=== PATIENT | female | born 1995 | race Caucasian/White ===

== ENCOUNTER → 2021-12-20 | Outpatient (CLI) | payer OTHER ==
[2021-12-20 13:44] LABS: HEMATOCRIT 36.7 % (36.0-47.0); HEMOGLOBIN 12.4 g/dl (12.0-15.5); MEAN CORPUSCULAR HEMOGLOBIN 30.8 pg (27.0-33.0); MEAN CORPUSCULAR HGB CONC 33.8 g/dl (32.0-36.5); MEAN CORPUSCULAR VOLUME 91.1 fl (80.0-96.0); PLATELET COUNT, AUTOMATED 356 10^3/uL (150-450); RED BLOOD COUNT 4.03 10^6/uL (4.00-5.40); WHITE BLOOD COUNT 10.7 10^3/uL (4.0-10.0)
[2021-12-20 15:38] LABS: GC DNA AMPLIFICATION NEGATIVE (NEGATIVE)
[2021-12-20 15:46] LABS: HEPATITIS C VIRUS ABY INDEX < 0.0 INDEX (<0.8); HIV 1&2 SCREEN CENTAUR NEGATIVE (NEGATIVE)
== END ==
LOC: M PLALAB 11:36
PROVIDERS: ATTEND Obstetrics & Gynecology
DX: Z36.9 Encounter for antenatal screening, unspecified (principal); Z3A.18 18 weeks gestation of pregnancy

== ENCOUNTER → 2022-01-04 | Outpatient (CLI) | payer OTHER | LOC: M WHC 12:40 | PROVIDERS: ATTEND Obstetrics & Gynecology | DX: Z34.92 Encounter for supervision of normal pregnancy, unspecified, second trimester (principal); Z3A.20 20 weeks gestation of pregnancy ==

== ENCOUNTER → 2022-01-24 | Outpatient (CLI) | payer OTHER | LOC: M WHC 15:11 | PROVIDERS: ATTEND Obstetrics & Gynecology | DX: Z34.02 Encounter for supervision of normal first pregnancy, second trimester (principal); Z3A.23 23 weeks gestation of pregnancy ==

== ENCOUNTER → 2022-02-16 | Outpatient (CLI) | payer OTHER ==
[2022-02-16 15:26] LABS: HEMATOCRIT 34.6 % (36.0-47.0); HEMOGLOBIN 11.8 g/dl (12.0-15.5); MEAN CORPUSCULAR HEMOGLOBIN 31.4 pg (27.0-33.0); MEAN CORPUSCULAR HGB CONC 34.1 g/dl (32.0-36.5); PLATELET COUNT, AUTOMATED 323 10^3/uL (150-450); RED BLOOD COUNT 3.76 10^6/uL (4.00-5.40)
[2022-02-16 17:00] LABS: GC DNA AMPLIFICATION NEGATIVE (NEGATIVE)
== END ==
LOC: M PLALAB 13:34
PROVIDERS: ATTEND Obstetrics & Gynecology
DX: Z34.02 Encounter for supervision of normal first pregnancy, second trimester (principal); Z3A.22 22 weeks gestation of pregnancy

== ENCOUNTER → 2022-03-01 | Outpatient (CLI) | payer OTHER | LOC: M LAB 08:05 | PROVIDERS: ATTEND Obstetrics & Gynecology | DX: O99.810 Abnormal glucose complicating pregnancy (principal) ==

== ENCOUNTER → 2022-04-18 | Outpatient (REF) | payer OTHER | LOC: M SFHCWAGY 16:46 | PROVIDERS: ATTEND Obstetrics & Gynecology | DX: Z36.89 Encounter for other specified antenatal screening (principal); Z3A.35 35 weeks gestation of pregnancy ==

== ENCOUNTER → 2022-04-27 | Outpatient (CLI) | payer OTHER | LOC: M WHC 08:46 | PROVIDERS: ATTEND Advanced Practice Midwife | DX: O24.419 Gestational diabetes mellitus in pregnancy, unspecified control (principal); Z3A.37 37 weeks gestation of pregnancy ==

== ENCOUNTER 2022-05-15 08:58 | Inpatient (IN) | payer OTHER ==
[~2022-05-15] VITALS: Ht 152.4 cm; Wt 72.6 kg
[2022-05-15] VITALS (20 sets, daily range): BP systolic 96–122; BP diastolic 52–80
[2022-05-15] MEDS ORDERED: HOME MED LIST COMPLETE! XX SCH (09:20)
[2022-05-15] MEDS ORDERED: PRENTAB9 PO (09:23)
[2022-05-15] MEDS ORDERED: LR 1,000 ML IV ONE (10:25)
[2022-05-15 10:41] LABS: HEMATOCRIT 35.8 % (36.0-47.0); HEMOGLOBIN 12.4 g/dl (12.0-15.5); MEAN CORPUSCULAR HEMOGLOBIN 31.2 pg (27.0-33.0); MEAN CORPUSCULAR HGB CONC 34.6 g/dl (32.0-36.5); MEAN CORPUSCULAR VOLUME 90.2 fl (80.0-96.0); PLATELET COUNT, AUTOMATED 244 10^3/uL (150-450); RED BLOOD COUNT 3.97 10^6/uL (4.00-5.40); WHITE BLOOD COUNT 11.2 10^3/uL (4.0-10.0)
[2022-05-15] MEDS ORDERED: LACTATED RINGER'S 1000 ML IV STA (10:54)
[2022-05-15] MEDS ORDERED: METHYLERGONOVINE MALEATE 0.2 MG/ML VIAL (J2210) IM PRN (10:55)
[2022-05-15] MEDS ORDERED: LIDOCAINE 1% MDV 20ML VIAL INFIL PRN (10:55)
[2022-05-15] MEDS ORDERED: CARBOPROST TROMETHAMINE 250 MCG/ML AMP IM PRN (10:55)
[2022-05-15] MEDS ORDERED: TRANEXAMIC ACID INJection 1,000 MG in NS 100 ML IV PRN (10:55)
[2022-05-15] MEDS ORDERED: PENICILLIN G POTASSIUM IV 5 MU in D5W MINI-BAG PLUS 100 ML IV STA ×2 (11:08→20:30)
[2022-05-15] MEDS: miSOPROStol 50MCG 1/2 TABLET SL SCH ×3 (11:21→20:00)
[2022-05-15] MEDS ORDERED: PENICILLIN G POTASSIUM IV 2.5 MU in IV 1 EA IV SCH (15:10)
[2022-05-15] MEDS ORDERED: OXYTOCIN DRIP 30 UNITS in IV 1 EA IV SCH (20:15)
[2022-05-15] MEDS ORDERED: **PENDING PCN ENTRY XX SCH (21:00)
[2022-05-15] MEDS: LR 1,000 ML IV SCH (21:00)
[2022-05-15] MEDS ORDERED: FENTANYL 2MCG/ML ROPIVACAINE 0.2% IN 0.9% NACL 100ML IVBAG As Ordered ONE (23:28)
[2022-05-15] MEDS ORDERED: diphenhydrAMINE 50MG/ML VIAL (J1200) IV PRN (23:30)
[2022-05-15] MEDS ORDERED: NALOXONE INJ 0.4MG/1ML VIAL (J2310 PER 1MG) IV PRN (23:30)
[2022-05-15] MEDS ORDERED: EPIDURAL/PCA KEYS XX PRN (23:30)
[2022-05-15] MEDS ORDERED: LR 500 ML IV PRN (23:30)
[2022-05-15] MEDS ORDERED: ONDANSETRON 4MG 2ML VIAL IV PRN (23:30)
[2022-05-15] MEDS ORDERED: ePHEDrine SULFATE 25 MG/5 ML(5MG/ML) SYRINGE IVP PRN (23:30)
[2022-05-16] VITALS (40 sets, daily range): BP systolic 91–131; BP diastolic 44–77
[2022-05-16] MEDS: miSOPROStol 50MCG 1/2 TABLET SL SCH
[2022-05-16] MEDS: FENTANYL/ROPIVACAINE/NACL BAG 100 ML EPIDURAL SCH ×2 (00:34→07:40)
[2022-05-16] MEDS: LR 1,000 ML IV SCH ×2 (00:36→01:37)
[2022-05-16] MEDS: PENICILLIN G POTASSIUM IV 2.5 MU in IV 1 EA IV SCH ×3 (03:38→11:48)
[2022-05-16] MEDS ORDERED: ACETAMINOPHEN 500 MG TAB PO ONE (08:20)
[2022-05-16] MEDS ORDERED: BICITRA 30ML SOLN UDC PO ONE (12:45)
[2022-05-16] MEDS ORDERED: ceFAZolin SOD 2 GM in IV 1 EA IV ONE (12:45)
[2022-05-16] MEDS ORDERED: AZITHROMYCIN INJ 500 MG, VIAL MATE ADAPTER 1 EACH in NS 250 ML IV ONE (12:45)
[2022-05-16] MEDS ORDERED: OXYTOCIN INJ 10 UNITS/ML VIAL (J2590) As Ordered ONE ×2 (13:39→14:12)
[2022-05-16] MEDS ORDERED: KETOROLAC 60MG 2ML VIAL As Ordered ONE (13:46)
[2022-05-16] MEDS ORDERED: MORPHINE PRES-FREE INJ 10 MG/10 ML VIAL As Ordered ONE (13:46)
[2022-05-16] MEDS ORDERED: ONDANSETRON 4MG 2ML VIAL As Ordered ONE (14:00)
[2022-05-16] MEDS ORDERED: dexameTHASONE 4 MG/ML 1ML VIAL (J1100 PER 1MG) As Ordered ONE (14:00)
[2022-05-16] MEDS ORDERED: BUPIVACAINE HCL 0.25% 10ML VIAL SC ONE (14:10)
[2022-05-16] MEDS ORDERED: BUPIVACAINE HCL 0.25% 10ML VIAL As Ordered ONE (14:14)
[2022-05-16] MEDS ORDERED: DOCUSATE SODIUM 100MG CAPSULE PO PRN (14:35)
[2022-05-16] MEDS ORDERED: RHOGAM 300 MCG (1500 IU) INJ (J2790) IM SCH (14:35)
[2022-05-16] MEDS ORDERED: SIMETHICONE 80MG CHEW TAB PO PRN (14:35)
[2022-05-16] MEDS ORDERED: oxyCODONE 5MG TAB PO PRN ×2 (14:35)
[2022-05-16] MEDS ORDERED: ACETAMINOPHEN 500 MG TAB PO SCH (14:35)
[2022-05-16] MEDS ORDERED: OXYTOCIN DRIP 30 UNITS in IV 1 EA IV SCH (14:35)
[2022-05-16] MEDS ORDERED: OXYTOCIN 30 UNITS IN 0.9% NaCl 500ML IV BAG (J2590) As Ordered ONE (14:49)
[2022-05-16] MEDS ORDERED: METOCLOPRAMIDE INJ 10MG/2ML VIAL (J2765 PER 1) IV PRN (15:25)
[2022-05-16] MEDS ORDERED: **NOTE PATIENT COMMENT** MISC XX SCH (15:25)
[2022-05-16] MEDS ORDERED: LR 1,000 ML IV SCH (15:25)
[2022-05-16] MEDS ORDERED: ONDANSETRON 4MG 2ML VIAL IV PRN ×2 (15:25)
[2022-05-16] MEDS ORDERED: diphenhydrAMINE 50MG/ML VIAL (J1200) IV PRN (15:25)
[2022-05-16] MEDS ORDERED: fentaNYL 100 MCG/2 ML INJECTION IV PRN (15:25)
[2022-05-16] MEDS ORDERED: NALOXONE INJ 0.4MG/1ML VIAL (J2310 PER 1MG) IV PRN ×2 (15:25)
[2022-05-16] MEDS ORDERED: METHYLERGONOVINE MALEATE 0.2 MG/ML VIAL (J2210) IM ONE (15:35)
[2022-05-16] MEDS: PRENATAL VITAMINS CHEWABLE TABLET PO SCH (17:41)
[2022-05-16] MEDS: ACETAMINOPHEN 500 MG TAB PO SCH (17:57)
[2022-05-16] MEDS: SLF 3 ML SYR IV SCH (18:44)
[2022-05-16] MEDS: KETOROLAC 30 MG/ML 1ML VIAL IV SCH (19:21)
[2022-05-17] MEDS: SLF 3 ML SYR IV SCH ×2 (00:06→07:25)
[2022-05-17] MEDS: ACETAMINOPHEN 500 MG TAB PO SCH ×5 (00:07→23:02)
[2022-05-17] MEDS: KETOROLAC 30 MG/ML 1ML VIAL IV SCH ×2 (01:51→08:17)
[2022-05-17 02:00] VITALS: BP 92/53
[2022-05-17 06:00] VITALS: BP 92/55
[2022-05-17 07:21] LABS: HEMATOCRIT 31.7 % (36.0-47.0); HEMOGLOBIN 10.7 g/dl (12.0-15.5); MEAN CORPUSCULAR HEMOGLOBIN 31.1 pg (27.0-33.0); MEAN CORPUSCULAR HGB CONC 33.8 g/dl (32.0-36.5); MEAN CORPUSCULAR VOLUME 92.2 fl (80.0-96.0); PLATELET COUNT, AUTOMATED 230 10^3/uL (150-450); RED BLOOD COUNT 3.44 10^6/uL (4.00-5.40); WHITE BLOOD COUNT 21.8 10^3/uL (4.0-10.0)
[2022-05-17] MEDS: PRENATAL VITAMINS CHEWABLE TABLET PO SCH (08:17)
[2022-05-17 10:00] VITALS: BP 90/52
[2022-05-17 14:00] VITALS: BP 95/51
[2022-05-17] MEDS: IBUPROFEN 600MG TAB PO SCH ×2 (18:19→23:00)
[2022-05-17 22:00] VITALS: BP 96/51
[2022-05-18 02:23] VITALS: BP 99/63
[2022-05-18] MEDS: IBUPROFEN 600MG TAB PO SCH ×2 (05:43→12:43)
[2022-05-18] MEDS: ACETAMINOPHEN 500 MG TAB PO SCH ×2 (05:44→12:43)
[2022-05-18 06:02] VITALS: BP 111/75
[2022-05-18] MEDS: PRENATAL VITAMINS CHEWABLE TABLET PO SCH (07:51)
[2022-05-18] MEDS ORDERED: MEASLES,MUMPS,RUBELLA VACCINE INJ (MMR-II) (90707) SC.IMMUN ONE (09:00)
[2022-05-18] MEDS ORDERED: OXYC-517 PO (13:14)
[2022-05-18] MEDS ORDERED: COLA100C5 PO (13:14)
[2022-05-18] MEDS ORDERED: IBUP-1022 PO (13:14)
== END 2022-05-18 13:40 | disposition home or self-care (01) | DRG 773 ==
LOC: M LDI 08:58 → M OBS 05-16 16:30
PROVIDERS: ADMIT Obstetrics & Gynecology; ATTEND Obstetrics & Gynecology
PROC: 3E033VJ Introduction of Other Hormone into Peripheral Vein, Percutaneous Approach (ICD-10-PCS; 2022-05-15)
PROC: 3E0DXGC Introduction of Other Therapeutic Substance into Mouth and Pharynx, External Approach (ICD-10-PCS; 2022-05-15)
PROC: 10D00Z1 Extraction of Products of Conception, Low, Open Approach (ICD-10-PCS; principal; 2022-05-16 13:00)
DX: O40.3XX0 Polyhydramnios, third trimester, not applicable or unspecified (principal); Z37.0 Single live birth; O24.429 Gestational diabetes mellitus in childbirth, unspecified control; O99.824 Streptococcus B carrier state complicating childbirth; O32.4XX0 Maternal care for high head at term, not applicable or unspecified; Z3A.39 39 weeks gestation of pregnancy

== ENCOUNTER → 2024-02-26 | Outpatient (CLI) | payer OTHER ==
[~2024-02-26] MED LIST: COLA100C5 PO; IBUP-1022 PO; OXYC-517 PO; PRENTAB9 PO
== END ==
LOC: M WUC 09:58
PROVIDERS: ATTEND Student in an Organized Health Care Education/Training Program
DX: M25.512 Pain in left shoulder (principal)

== ENCOUNTER → 2025-08-02 | Outpatient (CLI) | payer OTHER ==
[~2025-08-02] MED LIST changes: -IBUP-1022 PO; +IBUP600T42 PO
[2025-08-02 11:12] LABS: HCG, SERUM QUANTITATIVE < 2.6 MIU/ML (<4.2)
[2025-08-02 11:34] LABS: HCG, SERUM QUALITATIVE NEGATIVE (NEGATIVE)
== END ==
LOC: M LAB 09:24
PROVIDERS: ATTEND Physician Assistant Medical
DX: R11.0 Nausea (principal)

== ENCOUNTER → 2025-08-26 | Outpatient (REF) | payer OTHER ==
[2025-08-26 18:04] LABS: BASO # 0.1 10^3/uL (0.0-0.2); BASO % 0.5 % (0.0-1.0); EOS # 0.1 10^3/uL (0.0-0.5); EOS % 0.9 % (0.0-3.0); LYMPH # 2.8 10^3/uL (1.5-5.0); LYMPH % 30.7 % (24.0-44.0); MONO # 0.6 10^3/uL (0.0-0.8); MONO % 6.5 % (2.0-8.0); NEUTROPHILS # 5.6 10^3/uL (1.5-8.5); NEUTROPHILS % 60.7 % (36.0-66.0); PLATELET COUNT, AUTOMATED 318 10^3/uL (150-450)
[2025-08-26 18:21] LABS: ALT/SGPT 27 U/L (7.0-40); AST/SGOT 18 U/L (<34); CALCIUM LEVEL 9.3 MG/DL (8.5-10.1); CARBON DIOXIDE LEVEL 28 MMOL/L (20-31); CHLORIDE LEVEL 103 MMOL/L (98-107); CHOLESTEROL LEVEL 190 MG/DL (<200); CHOLESTEROL RISK RATIO 4.44 (<5); CREATININE FOR GFR 0.66 MG/DL (0.55-1.30); FREE T4 1.28 NG/DL (0.89-1.76); GLOMERULAR FILTRATION RATE > 90.0 (>60); LDL CHOLESTEROL 101.9 MG/DL (<100); NON-HDL-C 147.3 MG/DL; POTASSIUM SERUM 3.8 MMOL/L (3.5-5.1); PROLACTIN 7.09 NG/ML; SODIUM LEVEL 139 MMOL/L (136-145); TRIGLYCERIDES LEVEL 227 MG/DL (<150)
[2025-08-26 18:28] LABS: APPEARANCE, URINE CLEAR (CLEAR); BACTERIA, URINE AUTO NEGATIVE (NEGATIVE); BILIRUBIN, URINE AUTO NEGATIVE (NEGATIVE); BLOOD, URINE BLOOD NEGATIVE (NEGATIVE); GLUCOSE, URINE (UA) AUTO 3+ mg/dL (NEGATIVE); KETONE, URINE AUTO NEGATIVE (NEGATIVE); LEUKOCYTE ESTERASE, URINE AUTO NEGATIVE (NEGATIVE); NITRITE, URINE AUTO NEGATIVE (NEGATIVE); PROTEIN, URINE AUTO NEGATIVE (NEGATIVE); RBC, URINE AUTO 0 /HPF (0-3); SPECIFIC GRAVITY URINE AUTO 1.018 (1.002-1.035); SQUAMOUS EPITHELIAL CELL UR AU 7 /HPF (0-6); UROBILINOGEN, URINE AUTO 0.2 mg/dL (0.0-2.0); WBC, URINE AUTO 1 /HPF (0-3)
[2025-08-26 18:32] LABS: ESTIMATED AVERAGE GLUCOSE 120.0 MG/DL (60-110)
[2025-08-26 18:33] LABS: HCG, SERUM QUALITATIVE NEGATIVE (NEGATIVE)
== END ==
LOC: M SFHCLERA 11:23
PROVIDERS: ATTEND Internal Medicine
DX: Z00.01 Encounter for general adult medical examination with abnormal findings (principal); N91.1 Secondary amenorrhea; Z32.00 Encounter for pregnancy test, result unknown